=== PATIENT | male | born 1970 | race Asian ===

== ENCOUNTER 2021-04-24 15:26 | Outpatient (REF) | payer MEDICAID, OTHER, SELFPAY ==
--- NOTE | ~2021-04-24 | US_ITS ---
EXAMINATION: ULTRASOUND EXTREMITY NONVASCULAR CLINICAL INFORMATION: Soft tissue subcutaneous growth of the left knee. Question lipoma. COMPARISON: None TECHNIQUE: Targeted sonographic evaluation of the left knee region of concern. FINDINGS: There is a solid mass which is well defined at the region of concern at the anterior left knee. This measures 3 x 2.7 x 0.8 cm and is 0.4 cm deep to the skin surface. There is internal Doppler vascularity. US/US extremity nonvascular murray IMPRESSION: Vascular mass in the subcutaneous tissues of the anterior knee. This is not the typical appearance for a lipoma. Consider further evaluation with either MRI or tissue sampling.
== END 2021-04-24 15:27 | disposition home or self-care (01) ==
LOC: HO.HMGCX 15:26
PROVIDERS: Visit Provider Internal Medicine
DX: D17.9 Benign lipomatous neoplasm, unspecified (principal)
CPT/HCPCS: 76882

== ENCOUNTER 2022-12-28 13:59 | Outpatient (REF) | payer MEDICAID, OTHER, SELFPAY ==
--- NOTE | ~2022-12-28 | XR_ITS ---
EXAMINATION: XR CERVICAL SPINE CLINICAL INFORMATION: Arm paresthesia COMPARISON: None available. TECHNIQUE: Frontal, lateral, odontoid, and oblique views of the cervical spine obtained FINDINGS: There is no prevertebral soft tissue swelling. There is a straightening of the normal lordosis possibly due to positioning or muscular spasm. Multilevel degenerative changes are seen with exuberant anterior osteophyte formation from C3 to C7. Vertebral body heights and disc heights are preserved. Mild bony foraminal encroachment is seen on the left at C5/C6 and C6/C7 and minimal bony foraminal encroachment on the right at C6/C7. XR/XR cervical spine 5V IMPRESSION: Multilevel degenerative changes seen with mild bony foraminal encroachment as described above. No acute fracture or dislocation.
== END 2022-12-28 14:00 | disposition home or self-care (01) ==
LOC: HO.HMGCX 13:59
PROVIDERS: PCP Internal Medicine; Visit Provider Internal Medicine
DX: R20.2 Paresthesia of skin (principal)
CPT/HCPCS: 72050

== ENCOUNTER 2023-06-22 11:24 | Outpatient (REF) | payer MEDICAID, OTHER, SELFPAY ==
[2023-06-22 14:59] LABS: Appearance Urine Clear; Color Urine Yellow; Glucose Urine UA Negative (Negative); Leukocyte Esterase Urine Negative (Negative); Nitrite Urine Negative (Negative); PH 5.5 (5.0-9.0); Specific Gravity - Urine 1.025 (1.005-1.025); Urine Blood Negative (Negative); Urine Ketones Trace mg/dL (Negative); Urine Protein Negative (Neg-Trace)
[2023-06-22 15:04] LABS: Bacteria Urine None Seen (None Seen); Hyaline Casts Urine 0-2 /LPF (0-2); RBC Urine 0-2 /HPF (0-2); Squamous Epithelial Cell Urine 0-2 /HPF (0-2); WBC Urine 0-5 /HPF (0-5)
== END 2023-06-22 11:25 | disposition home or self-care (01) ==
LOC: HO.CHCLDS 11:24
PROVIDERS: Visit Provider Internal Medicine
DX: M62.830 Muscle spasm of back (principal)
CPT/HCPCS: 81001

== ENCOUNTER 2023-06-25 09:52 | Outpatient (REF) | payer MEDICAID, OTHER, SELFPAY ==
--- NOTE | ~2023-06-25 | XR_ITS ---
EXAMINATION: XR KNEE, RIGHT CLINICAL INFORMATION: Pain in the right knee COMPARISON: None available. TECHNIQUE: Four views of the right knee. FINDINGS: No fracture or joint effusion. Alignment is anatomic. Joint spaces are maintained. No abnormal soft tissue calcification. There is minimal spurring causing the patella XR/XR knee RT 3V IMPRESSION: Mild degenerative changes in patellofemoral compartment
--- NOTE | ~2023-06-25 | XR_ITS ---
EXAMINATION: XR ELBOW, LEFT CLINICAL INFORMATION: Pain in left elbow COMPARISON: None available. TECHNIQUE: AP, lateral, and oblique views of the left elbow. FINDINGS: The bones and soft tissues are normal. No fracture or joint effusion. Alignment is anatomic. Joint spaces are maintained. XR/XR elbow LT 2V IMPRESSION: Normal left elbow.
--- NOTE | ~2023-06-25 | XR_ITS ---
EXAMINATION: XR KNEE, LEFT CLINICAL INFORMATION: Pain in left knee COMPARISON: None available. TECHNIQUE: Four views of the left knee. FINDINGS: No fracture or joint effusion. Alignment is anatomic. Joint spaces are maintained. No abnormal soft tissue calcification. XR/XR knee LT 2V IMPRESSION: Normal left knee.
== END 2023-06-25 09:53 | disposition home or self-care (01) ==
LOC: HO.HHCX 09:52
PROVIDERS: Visit Provider Internal Medicine
DX: M25.522 Pain in left elbow (principal); M25.561 Pain in right knee; M25.562 Pain in left knee; G89.29 Other chronic pain
CPT/HCPCS: 73070; 73560; 73562

== ENCOUNTER 2024-11-27 09:34 | Outpatient (REF) | payer MEDICAID, OTHER, SELFPAY ==
--- OUTSIDE RECORDS SUMMARY | 2024-11-27 10:12 | XMS_ITS | Encounter Summary ---
Author Organization [employer] Address [address] [place] [address] Care Team Providers Care Tool Chaser Name Role Phone Lambert Astorga MD Primary Care Provider [phone] Reason for Visit * Reason Onset Date Comments triage 11/10/2022 Encounter Details Date Type Department Care Team (Late st Contact Info) Description 11/10/2022 Telephone [facility] MEDICINE [address] [place] [address] Lambert Astorga MD [address] [place], [place] [phone] triage Social History Tobacco Use Types Packs/Day Years Used Date Smoking Tobacco: Never Passive Smoke Exposure: Never Smokeless Tobacco: Never Alcohol Use Standard Drinks/Week Comments Never 0 (1 standard drink = 0.6 oz pur e alcohol) Sex and Gender Information Value Date Recorded Sex Assigned at Male 04/20/2022 10:38 AM EDT Legal Sex Male 10:38 AM EDT Gender Identity Male 04/20/2022 10:38 AM EDT Sexual Orientation Straight 04/20/2022 10 :38 AM EDT COVID-19 Exposure Response Date Recorded In the last 10 days, have yo u been in contact with someone who was confirmed or suspected to have Coronavirus/COVID-19? No / Unsure 11/10/2022 3:16 PM EDT documented as of this encounter Miscellaneous Notes * Telephone Encounter - Myah Gilliland RN - 11/10/2022 9:22 AM EDT Triage call Pt reports a bubble on left side of tongue. Pt reports it is very painful, white color now and makes eating difficult. Pt reports frequently bites tongue when chewing. Pt has contacted dental for routine care but, no call received. Pt is concerned that this is not going away and wouldlike a provider to check to see if it is something harmful. Apt with Dr. Downing 330pm 11/10 @ [facility] . Pt agrees to this apt. Insurance is verified as active at time of booking. Protocol Used: Mouth Symptoms (Adult) Protocol-Based Disposition: See in Office or Video Visit within 3 Days Video visit not offered Positive Triage Question: * Patient wants to be seen * All higher-acuity triage questions were negative Care Advice Discussed: * Reasons To Call Back - You become worse * Telephone Encounter - Raymond Kwok - 11/10/2022 8:31 AM EDT Symptom: Mouth Pain - Not From Injury Outcome: Schedule an appointment to be seen within 24 hours Reason: Caller denied all higher acuity questions The caller accepted this outcome documented in this encounter Plan of Treatment Not on file documented as of this encounter Visit Diagnoses Not on filedocumented in this encounter Care Teams Tool Chaser Relationship Specialty Start Date End Date Lambert Astorga MD [address] [place] [address] PCP - General Internal Medicine 01/27/21 documented as of this encounter
[2024-11-27 14:54] LABS: Alanine Aminotransferase 28 U/L (0-40); Albumin Level 4.2 g/dL (3.5-5.0); Alkaline Phosphatase 88 U/L (39-117); Anion Gap 9 (12-20); Aspartate Amino Transferase 30 U/L (5-37); Bilirubin Total 0.4 mg/dL (0.0-1.0); Blood Urea Nitrogen 14 mg/dL (9-16); Calcium 8.6 mg/dL (8.4-10.2); Carbon Dioxide 27 mmol/L (22-29); Chloride 108 mmol/L (96-108); Cholesterol 219 mg/dL (<200); Estimated Glomerular Filt Rate > 60; Glucose Random 104 mg/dL (60-115); HDL Cholesterol 38 mg/dL (>40); LDL Cholesterol Calculated 156 mg/dL (<100); Sodium 140 mmol/L (135-145); Total Protein 6.8 g/dL (6.5-8.0); Triglycerides 127 mg/dL (<150)
[2024-11-27 15:11] LABS: TSH reflex Free T4 0.28 uIU/mL (0.32-4.0)
[2024-11-27 15:59] LABS: Free T4 (Free Thyroxine) 1.23 ng/dL (0.71-1.85)
== END 2024-11-27 09:35 | disposition home or self-care (01) ==
LOC: HO.CHCLDS 09:34
PROVIDERS: Visit Provider Internal Medicine
DX: R03.0 Elevated blood-pressure reading, without diagnosis of hypertension (principal)
CPT/HCPCS: 36415; 80053; 80061; 84439; 84443

== ENCOUNTER 2025-03-01 09:17 | Outpatient (REF) | payer MEDICAID, OTHER, SELFPAY ==
--- OUTSIDE RECORDS SUMMARY | 2025-02-27 09:15 | XMS_ITS | Encounter Summary ---
Author Organization [employer] Address [address] [place] [address] [place] [address] Care Team Providers Care Multiple Tube Winding Machine Operator Name Role Phone Lambert Astorga MD Primary Care Provider [phone]- [phone] Reason for Referral * Medications - Closed Specialty Diagnoses / Procedures Referred By Geovanny hayes Referred To Contact Diagnoses Other male erectile dysfunction Lambert Astorga MD [address] [place] [address] Phone: tel: fax: Referral ID Status Reason Start Date Expiration Date Visits Re quested Visits Authorized [id number] Closed 1 1 Reason for Visit * Reason Comments Premature Ejaculation Erectile Dysfunction Encounter Details Date Type Department Care Team ([facility] Contact Info) Description 02/27/2025 9:15 AM EDT Office Visit [facility] MED & PEDS [address] [place] [address] Lambert Astorga MD [address] [place] [address] Elevated blood pressure reading (Primary Dx); Other hemorrhoids; Premature ejaculation; Other male erectile dysfunction; Nocturia Social History Tobacco Use Types Packs/Day Years Used Date Smoking Tobacco: Never Passive Smoke Exposure: Never Smokeless Tobacco: Never Alcohol Use Standard Drinks/Week Comments Never 0 (1 standard drink = 0.6 oz pur e alcohol) Depression Answer Date Recorded Patient Health Questionnaire-9 Score 1 02/27/2025 Patient Health Questionnaire-9 Score 1 02/27/2025 Last PHQ-9: Questionnaire Data Not on file 0 02/27/2025 Housing Stability Answer Date Recorded What is your housing situation today? I have kaushik lobato 11/17/[address] you li ve. Do you have problems with any of the following? None of the above 11/17/2024 Food Insecurity Answer Date Recorded Within the past 12 months, y ou worried that your food would run out before you got money to buy more: Never True 11/17/2024 Within the past 12 months,th e food you bought just didn't last and you didn't have enough money to get more: Never True Transportation Answer Date Recorded In the past 12 months, has l ack of transportation kept you from medical appts, meetings, work or from getting things needed for daily living? No 11/17/2024 Utilities Answer Date Recorded In the past 12 months, has t he electric, gas, oil or water company threatened to shut off services in your home? No 11/17/2024 Depression Answer Date Recorded Patient Health Questionnaire-2 Score 0 02/27/2025 Internet Access Answer Date Recorded Internet Access Q1 Yes 11/17/2024 Internet Access Q2 Not on file 11/17/2024 Sex and Gender Information Value Date Recorded Sex Assigned at Male 04/20/2022 10:38 AM EDT Legal Sex Male 10:38 AM EDT Gender Identity Male 04/20/2022 10:38 AM EDT Sexual Orientation Straight 04/20/2022 10 :38 AM EDT documented as of this encounter Last Filed Vital Signs Vital Sign Reading Time Taken Comments Blood Pressure 132/74 02/27/2025 9:08 AM EDT Pulse 68 02/27/2025 9:08 AM EDT Temperature 36.9 C (98.4 F) 02/27/2025 9:08 AM EDT Respiratory Rate 16 02/27/2025 9:08 AM EDT Oxygen Saturation - - Inhaled Oxygen Concentration - - Weight 86.5 kg (190 lb 9.6 oz) 02/27/2025 9:08 A M EDT Height 165.1 cm (5' 5 ) 02/27/2025 9:08 AM EDT Body Mass Index 31.72 02/27/2025 9:08 AM EDT documented in this encounter Functional Status * Over the past 2 weeks, how often have you been bothered by any of the following problems? Question Answer Date of Assessment Author Patient Health Questionnaire-2 Score 0 02/2025 9:35 AM EDT Marcella Ayers MA * Little interest or pleasure in doing things Answer Date of Assessment Author Not at all 02/27/2025 9:35 AM EDT Keith Ayers MA * Feeling down, depressed, or hopeless Answer Date of Assessment Author Not at all 02/27/2025 9:35 AM EDT Keith Ayers MA * Trouble falling or staying asleep, or sleeping too much Answer Date of Assessment Author Not at all 02/27/2025 9:35 AM EDT Keith Ayers MA * Feeling tired or having little energy Answer Date of Assessment Author Not at all 02/27/2025 9:35 AM EDT Keith Ayers MA * Poor appetite or overeating Answer Date of Assessment Author Not at all 02/27/2025 9:35 AM EDT Keith Ayers MA * Feeling bad about yourself - or that you are a failure or have let yourself or your family down Answer Date of Assessment Author Several days 02/27/2025 9:35 AM EDT Keith Ayers MA * Trouble concentrating on things, such as reading the newspaper or watching television Answer Date of Assessment Author Not at all 02/27/2025 9:35 AM EDT Keith Ayers MA * Moving or speaking so slowly that other people could have noticed? Or the opposite - being so fidgety or restless that you have been moving around a lot more than usual. Answer Date of Assessment Author Not at all 02/27/2025 9:35 AM DOREENT Keith Ayers MA * Thoughts that you would be better off or hurting yourself in some way Answer Date of Assessment Author Not at all 02/27/2025 9:35 AM EDT Keith Ayers MA * Patient Health Questionnaire-9 Score Answer Date of Assessment Author 1 02/27/2025 9:35 AM EDT Keith Ayers MA * How difficult have these problems made it for you to do your work, take care of things at home, or get along with other people? Answer Date of Assessment Author Not difficult at all 02/27/2025 9:35 AM Marcella Nettles MA documented as of this encounter Progress Notes * Lambert Astorga MD - 02/27/2025 9:15 AM EDT SUBJECTIVE Peter White is a 54 y.o. male who presents for Premature Ejaculation and Erectile Dysfunction. Erectile Dysfunction This is a chronic problem. The problem is unchanged. The nature of his difficulty is achieving erection and maintaining erection. Non-physiologic factors contributing to erectile dysfunction are performance anxiety. He reports no decreased libido. He reports his erection duration to be less than 1 minute. Irritative symptoms include nocturia. Obstructive symptoms do not include dribbling, incomplete emptying, an intermittent stream, a slower stream, straining or a weak stream. Pertinent negatives include no chills, dysuria, genital pain, hematuria, hesitancy or inability to urinate. Nothing aggravates the symptoms. Past treatments include nothing. He has had no adverse reactions caused by medications. There are no known risk factors. 1) patient also reports today that he has difficulty attaining and maintaining erection for severalmonths. He is rigidity is at 50%. He last less than 1 minute before ejaculation. 2) was referred to general surgery to consider hemorrhoidectomy but patient himself canceled the appointment because he did not have any bleeding and was not ready to get surgery for his hemorrhoids. 3) history of premature ejaculation. Was on Prozac which was helpful but patient has decided to stop the medication and is concerned about the fact that Prozac is an antidepressant. I explained to him that Prozac is indicated for treatment of premature ejaculation. 4) history of seasonal allergies. Was evaluated by [facility] mass allergy on January 15, 2025 and he wasstarted on Michelle and Flonase. Patient is otherwise doing better. 5) Mr Peter White is also complaining of nocturia. Wakes up at night 2-3 times to urinate. He denies any burning sensation/fever or other constitutional symptoms. Problem List[1] Allergies[2] Medications Ordered Prior to Encounter[3] Review of Systems Constitutional: Negative for chills. Genitourinary: Positive for nocturia. Negative for decreased libido, dysuria, hematuria, hesitancy and incomplete emptying. OBJECTIVE Vitals: 02/27/25 0908 BP: 132/74 BP Location: Left arm Patient Position: Sitting BP Cuff Size: Adult Pulse: 68 Resp: 16 Temp: 98.4 ??F (36.9 ??C) TempSrc: Oral Weight: 190 lb 9.6 oz (86.5 kg) Height: 5' 5 (1.651 m) Physical Exam Constitutional: General: He is not in acute distress. Appearance: Normal appearance. He is not ill-appearing, toxic-appearing or diaphoretic. Cardiovascular: Rate and Rhythm: Normal rate. Pulses: Normal pulses. Pulmonary: Effort: Pulmonary effort is normal. Skin: General: Skin is warm. Neurological: General: No focal deficit present. Mental Status: He is alert. Assessment/Plan Assessment/Plan Diagnoses and all orders for this visit: Elevated blood pressure reading Comments: Blood pressure is at goal today DASH diet recommended Weight loss also recommended. Other hemorrhoids Comments: Sitz bath Avoid spicy food and constipation Anusol as needed. Premature ejaculation Comments: Pt has stopped taking his Prozac Advised to resume it for the next 2 months. I will consider increasing the dose to 40 mg daily if no improvement. Orders: - FLUoxetine (PROzac) 20 MG capsule; Take 1 capsule (20 mg) by mouth Once per day. Other male erectile dysfunction - tadalafil (Cialis) 2.5 MG tablet; Take 1 tablet (2.5 mg) by mouth Once per day. - TSH W/Reflex to FT4; Future - Testosterone, Total, males (Adult), IA; Future Patient will be contacted with the results of the workup. Nocturia - Comprehensive Metabolic Panel; Future - Urinalysis, Complete, with Reflex to Culture; Future - PSA, Total With Reflex to PSA, Free; Future Patient will be contacted with the results of the blood work. [1] Patient Active Problem List Diagnosis Tongue ulcer Kidney stone Elevated blood pressure reading Acute hemorrhoid [2] No Known Allergies [3] Current Outpatient Medications on File Prior to Visit Medication Sig Dispense Refill Blood Pressure kit 1 Units in the morning. 1 kit 0 Diclofenac Sodium 1 % gel To apply to the affected area 4 times a day 100 g 0 econazole nitrate 1 % cream APPLY TO THE AFFECTED AREA(S) TWICE DAILY FOR FOURTEEN DAYS 30 g 0 fexofenadine (Michelle) 180 MG tablet Take 1 tablet (180 mg) by mouth if needed each day (Allergies). 30 tablet 2 fluticasone (Flonase) 50 MCG/ACT nasal spray Administer 1-2 sprays into each nostril Once per day. Shake gently. Before first use, prime pump. After use, clean tip and replace cap. 16 g 11 hydrocortisone (Anusol-HC) 2.5 % rectal cream Insert into the rectum 2 times daily. 28 g 1 meloxicam (Mobic) 15 MG tablet Take 1 tablet (15 mg) by mouth Once per day. 30 tablet 11 psyllium (Metamucil) 0.36 g capsule Take 6 capsules (2.16 g) by mouth Once per day. 180 capsule 11 [DISCONTINUED] FLUoxetine (PROzac) 20 MG capsule Take 2 capsules (40 mg) by mouth Once per day. 20 capsule 3 No current facility-administered medications on file prior to visit. documented in this encounter Plan of Treatment Scheduled Orders Name Type Priority Associated Diagnoses Orde r Schedule Comprehensive Metabolic Panel Lab Routine Nocturia Expected: 02/27/2025 (Approximate), Expires: 02/27/2026 TSH W/Reflex to FT4 Lab Routine Other male erectile dysfunction Expected: 02/27/2025 (Approximate), Expires: 02/27/2026 Testosterone, Total, males (Adult), IA Lab Routine Other male erectile dysfunction Expected: 02/27/2025, Expires: 02/27/2026 Urinalysis, Complete, with Reflex to Culture Lab Routine Nocturia Expected: 02/27/2025 (Approximate), Expires: 02/27/2026 PSA, Total With Reflex to PSA, Free Lab Routine Nocturia Expected: 02/27/2025 (Approximate), Expires: 02/27/2026 documented as of this encounter Visit Diagnoses Diagnosis Elevated blood pressure reading- Primary Elevated blood pressure reading without diagnosis of hypertension Other hemorrhoids Premature ejaculation Other male erectile dysfunction Nocturia documented in this encounter Additional Health Concerns Assessment Noted Time PHQ-9 Depression Total Score: 1 02/28/20 25 9:35 AM EDT documented as of this encounter Care Teams Multiple Tube Winding Machine Operator Relationship Specialty Start Date End Date Lambert Astorga MD [address] [place] [id number] PCP - General Internal Medicine 01/27/21 documented as of this encounter
--- OUTSIDE RECORDS SUMMARY | 2025-03-01 10:48 | XMS_ITS | Encounter Summary ---
Author Organization [employer] Address [address] [facility] 7 [place] [address] Care Team Providers Care Shorthand Reporter Name Role Phone Lambert Astorga MD Primary Care Provider [phone]- [phone] Encounter Details Date Type Department [facility]) Description 11/28/2024 Orders Only [facility] CHC MED & PEDS [address] [place] [address] Lambert Astorga MD [address] [place] [address] Low TSH level (Primary Dx); Dyslipidemia Social History Tobacco Use Types Packs/Day Years Used Date Smoking Tobacco: Never Passive Smoke Exposure: Never Smokeless Tobacco: Never Alcohol Use Standard Drinks/Week Comments Never 0 (1 standard drink = 0.6 oz pur e alcohol) Housing Stability Answer Date Recorded What is [...] off services in your home? No 11/17/2024 Internet Access Answer Date Recorded Internet Access Q1 Yes 11/17/2024 Internet Access Q2 Not on file 11/17/2024 Sex and Gender Information Value Date Recorded Sex Assigned at Male 04/20/2022 10:38 AM EDT Legal Sex Male 10:38 AM EDT Gender Identity Male 04/20/2022 10:38 AM EDT Sexual Orientation Straight 04/20/2022 10 :38 AM EDT documented as of this encounter Plan of Treatment Scheduled Orders Name Type Priority Associated Diagnoses Orde r Schedule TSH W/Reflex to FT4 Lab Routine Low TSH level Expected: 11/28/2024 (Approximate), Expires: 11/28/2025 Lipid Panel, Standard Lab Routine Dyslipidemia Expected: 11/28/2024 (Approximate), Expires: 11/28/2025 documented as of this encounter Visit Diagnoses Diagnosis Low TSH level- Primary Dyslipidemia Other and unspecified hyperlipidemia documented in this encounter Care Teams Shorthand Reporter Relationship Specialty Start Date End Date Lambert Astorga MD [address] [place] [id number] PCP - General Internal Medicine 01/27/21 documented as of this encounter
--- OUTSIDE RECORDS SUMMARY | 2025-03-01 10:48 | XMS_ITS | Encounter Summary ---
Author Organization [employer] Address [address] [facility] 7 [place] [address] Care Team Providers Care Control Systems Technician Name Role Phone Lambert Astorga MD Primary Care Provider [phone]- [phone] Reason for Visit * Reason Onset Date Comments Nurse Triage 10/26/2023 Encounter Details Date Type Department Care Team (Late st Contact Info) Description 10/26/2023 Telephone [facility] MEDICINE [address] [place] [address] Lambert Astorga MD [address] [place], [place] [phone] Nurse Triage Social History Tobacco Use Types Packs/Day Years Used Date Smoking Tobacco: Never Passive Smoke Exposure: Never Smokeless Tobacco: Never Alcohol Use Standard Drinks/Week Comments Never 0 (1 standard drink = 0.6 oz pur e alcohol) Housing Stability Answer Date Recorded What is your housing situation today? I have kaushik lobato 10/28/[address] you li ve. Do you have problems with any of the following? None of the above 10/28/2023 Food Insecurity Answer Date Recorded Within the past 12 months, y ou worried that your food would run out before you got money to buy more: Never True 10/28/2023 Within the past 12 months,th e food you bought just didn't last and you didn't have enough money to get more: Never True 02/2024 Transportation Answer Date Recorded In the past 12 months, has l ack of transportation kept you from medical appts, meetings, work or from getting things needed for daily living? No 10/28/2023 Utilities Answer Date Recorded In the past 12 months, has t he electric, gas, oil or water company threatened to shut off services in your home? No 10/28/2023 Sex and Gender Information Value Date Recorded Sex Assigned at Male 04/20/2022 10:38 AM EDT Legal Sex Male 10:38 AM EDT Gender Identity Male 04/20/2022 10:38 AM EDT Sexual Orientation Straight 04/20/2022 10 :38 AM EDT documented as of this encounter Miscellaneous Notes * Telephone Encounter - Wing Liban RN - 10/27/2023 9:24 AM EDT Appt for 11/03 canceled, put appt notes from there into the 10/27 appt's note. * Telephone Encounter - Norma Walters RN - 10/26/2023 11:21 AM EDT called pt to triage, spoke to pt. pt states seasonal allergies are getting worse and the medicationdoe not help much. pt reports nasal congestion, sneezing, tearing and redness of eyes, and fatigue.pt requesting sooner appt than the scheduled OV on 11/03 and asked if he was able to wait due to no severe symptoms. pt states cannot sleep and needs to run the AC constantly to help with the allergy symptoms and uses steam as well without significant relief. given appt 10/27 with PCP at 3:45 for exam. advised home care: continue allergy medication, steam, humidifier at bedside, and call back if worsening or new concerns. pt understands and agrees with plan. insurance verified. Protocol Used: Nasal Allergies (Hay Fever) (Adult) Protocol-Based Disposition: See in Office or Video Visit within 2 Weeks Video visit offer not recorded Positive Triage Question: * Nasal allergies occur year-round * All higher-acuity triage questions were negative Care Advice Discussed: * Reassurance and Education - Hay Fever * Wash Pollen off Body Daily * Avoiding Pollen * Nasal Washes for a Stuffy Nose and to Wash out Pollen * How to Make Saline (Salt Water) Nasal Wash * Antihistamine Medicines for Hay Fever * Nasal Decongestants for a Very Stuffy Nose * For Eye Allergies * Reasons To Call Back - Symptoms are not controlled in 2 days with continuous antihistamines - You become worse * Telephone Encounter - Jaxson Gilbert - 10/26/2023 10:25 AM EDT Symptom: Eye Allergy Outcome: Schedule an urgent appointment (within 4 hours) or talk to a nurse or provider soon Reason: Eyelid is red and swollen documented in this encounter Plan of Treatment Not on file documented as of this encounter Visit Diagnoses Not on filedocumented in this encounter Care Teams Control Systems Technician Relationship Specialty Start Date End Date Lambert Astorga MD [address] [place] [phone] PCP - General Internal Medicine 01/27/21 documented as of this encounter
--- OUTSIDE RECORDS SUMMARY | 2025-03-01 10:48 | XMS_ITS | Encounter Summary ---
Author Organization [employer] Address 75 [facility] 7 [place] [address] Care Team Providers Care Immigration Law Specialist Name Role Phone Lambert Astorga MD Primary Care Provider [phone] Encounter Details Date Type Department Care Team ([facility] st Contact Info) Description 06/30/[address] [facility] MED & PEDS [address] [place] [address] Lambert Astorga MD [address] [place], [place] [phone] Chronic pain of both knees (Primary Dx) Social History Tobacco Use Types Packs/Day Years [...] as of this encounter Plan of Treatment Not on file documented as of this encounter Visit Diagnoses Diagnosis Chronic pain of both knees- Primary documented in this encounter Care Teams Immigration Law Specialist Relationship Specialty Start Date End Date Lambert Astorga MD [address] [place], [place] [phone] PCP - General Internal Medicine 01/27/21 documented as of this encounter
--- OUTSIDE RECORDS SUMMARY | 2025-03-01 10:48 | XMS_ITS | Encounter Summary ---
Author Organization [email or web address] Address [address] [facility] [address] [place] [address] Care Team Providers Care Airplane First Officer Name Role Phone Lambert Astorga MD Primary Care Provider [phone]- [phone] Encounter Details Date Type Department Care Team (Latest Contact Info) Description 02/27/2025 Travel Social History Tobacco Use Types Packs/Day Years [...] AM EDT documented as of this encounter Functional Status * Over the [...] 9:35 AM DOREENT Keith Ayers MA * Trouble falling or staying asleep, or sleeping too much Answer Date of Assessment Author Not at all 02/27/2025 9:35 AM Keith Recio MA * Feeling tired or having little energy Answer Date of Assessment Author Not at all 02/27/2025 9:35 AM EDT Keith Ayers MA * Poor appetite or overeating Answer Date of Assessment Author Not at all 02/27/2025 9:35 AM DOREENT Keith Ayers MA * Feeling bad about yourself - or that you are a failure or have let yourself or your family down Answer Date of Assessment Author Several days 02/27/2025 9:35 AM Keith Recio MA * Trouble concentrating on things, such [...] 9:35 AM EDT Keith Ayers MA * Thoughts that you [...] Not difficult at all 02/27/2025 9:35 AM EDT Marcella Vazquez MA documented as of this encounter Plan of Treatment Not on file documented as of this encounter Visit Diagnoses Not on filedocumented in this encounter Additional Health Concerns Assessment Noted Time PHQ-9 Depression Total Score: 1 02/28/20 25 9:35 AM EDT documented as of this encounter Care Teams Airplane First Officer Relationship Specialty Start Date End Date Lambert Astorga MD [address] [place], [place] [address] [address] PCP - General Internal Medicine 01/27/21 documented as of this encounter
--- OUTSIDE RECORDS SUMMARY | 2025-03-01 10:48 | XMS_ITS | Clinical Summary ---
Author Organization [employer] Address 75 [facility] 7 [place] [address] Care Team Providers Care Key Account Coordinator Name Role Phone Lambert Astorga MD Primary Care Provider [phone] Allergies No known active allergies Medications Blood Pressure kitIndications :Elevated blood pressure reading 1 Units in the morning. 1 kit 11/11/19 23 Active Diclofenac Sodium 1 % gelIndications :Left elbow pain To apply to the affected area 4 times a day 100 g 09/03/19 24 Active econazole nitrate 1 % cream APPLY TO THE AFFECTED AREA(S) TWICE DAILY FOR FOURTEEN DAYS 30 g 09/21/19 24 Active psyllium (Metamucil) 0.36 g capsuleIndicat ions:Acute hemorrhoid Take 6 capsules (2.16 g) by mouth Once per day. 180 capsule 11 10/03/19 25 026 Active fexofenadine (Michelle) 180 MG tabletIndicati ons:Seasonal allergies Take 1 tablet (180 mg) by mouth if needed each day (Allergies). 30 tablet 2 11/28/19 25 Active fluticasone (Flonase) 50 MCG/ACT nasal sprayIndicatio ns:Seasonal allergies Administer 1-2 sprays into each nostril Once per day. Shake gently. Before first use, prime pump. After use, clean tip and replace cap. 16 g 11 11/28/19 25 026 Active meloxicam (Mobic) 15 MG tabletIndicati ons:Chronic pain of both knees,Hemorrho ids, unspecified hemorrhoid type Take 1 tablet (15 mg) by mouth Once per day. 30 tablet 11 11/28/19 25 026 Active hydrocortisone (Anusol-HC) 2.5 % rectal creamIndicatio ns:Hemorrhoids , unspecified hemorrhoid type Insert into the rectum 2 times daily. 28 g 1 11/28/19 25 Active FLUoxetine (PROzac) 20 MG capsuleIndicat ions:Premature ejaculation Take 1 capsule (20 mg) by mouth Once per day. 20 capsule 3 02/28/20 25 026 Active tadalafil (Cialis) 2.5 MG tabletIndicati ons:Other male erectile dysfunction Take 1 tablet (2.5 mg) by mouth Once per day. 30 tablet 2 02/28/20 25 025 Active FLUoxetine (PROzac) 20 MG capsuleIndicat ions:Premature ejaculation Take 2 capsules (40 mg) by mouth Once per day. 20 capsule 3 11/28/19 25 025 Discontinued(Re order (will not trigger notification to Pharmacy)) Active Problems Problem Noted Date Diagnosed Date Acute hemorrhoid 10/02/2024 Assessment & Plan (10/02/2024 1:21 PM EDT): Encouraged hydration, metameucil, colace prn, (pt had stopped) Warm stiz baths encouraged Rectal suppository rx, bid If no improvement or worsening pain referral to GI Tongue ulcer 11/10/2022 Assessment & Plan (02/03/2023 8:55 PM EDT): Patient with side tongue lesion, stomatitis??. Will prescribe triamcinolone paste, will order hiv and vit b12 levels Assessment & Plan (11/11/2022 8:38 AM EDT): ddx. Stomatitis. Will send to ENT for assessment given concern of no resolution and start on triamcinolone 0.1% oral paste. Advised not to consume any food or liquids 30 minutes after application. Will schedule f/up with PCP Kidney stone 11/10/2022 Elevated blood pressure reading 11/10/2022 Assessment & Plan (10/02/2024 1:21 PM EDT): Elevated bp in office today, pt will follow up with pcp Assessment & Plan (11/10/2022 3:49 PM EDT): Elevated blood pressure at time of visit with a reading of 148/90 mmHg. Will send blood pressure cuff. Encouraged monitoring blood pressure at home and follow with PCP. Encounters Date Type Department Care Team Description 02/27/2025 9:15 AM EDT Office Visit [facility] MED & PEDS [address] [place] [address] Lambert Astorga MD Elevated blood pressure reading (Primary Dx); Other hemorrhoids; Premature ejaculation; Other male erectile dysfunction; Nocturia 02/27/2025 Travel 02/26/2025 Telephone [facility] MED & PEDS [address] [place] [address] Lambert Astorga MD Chart Prep 12/04/2024 Telephone [facility] MED & PEDS [address] [place] [address] Lambert Astorga MD Medication Question 11/29/2024 Results Follow-Up [facility] MED & PEDS [address] [place] [address] Tatum Gomez RN Comprehensive Metabolic Panel, Lipid Panel, Standard, TSH W/Reflex to FT4 from Last 3 Months Immunizations Immunization Administration Dates Next Due Influenza injectable quadrivalent preservative f ree 04/17/2021 Social History Tobacco Use Types Packs/Day Years Used Date Smoking Tobacco: Never Passive Smoke Exposure: Never Smokeless Tobacco: Never Tobacco Cessation:Counseling Given: Not Answered Alcohol Use Standard Drinks/Week Comments Never 0 [...] Orientation Straight 04/20/2022 10 :38 AM EDT Last Filed Vital Signs Vital Sign Reading Time Taken Comments Blood Pressure 132/74 02/27/2025 9:08 AM EDT Pulse 68 02/27/2025 9:08 AM EDT Temperature 36.9 C (98.4 F) 02/27/2025 9:08 AM EDT Respiratory Rate 16 02/27/2025 9:08 AM EDT Oxygen Saturation 100% 11/27/2024 9:05 AM EDT Inhaled Oxygen Concentration - - Weight 86.5 kg (190 lb 9.6 oz) 02/27/2025 9:08 A M EDT Height 165.1 cm (5' 5 ) 02/27/2025 9:08 AM EDT Body Mass Index 31.72 02/27/2025 9:08 AM EDT Plan of Treatment Health Maintenance Due Date Last Done Comments CT Colonography 1969 Colonoscopy 1969 Colorectal Cancer Screening 1969 Dental Prophylaxis 1969 FIT DNA/Cologuard 1969 FIT 1969 FOBT 1969 HIV Screening 1969 Sigmoidoscopy 1969 Hepatitis C Screening 1987 DTaP/Tdap/Td Vaccines (1 - Tdap) 1988 Hepatitis B Vaccines (1 of 3 - 19+ 3-dose series) 1988 Pneumococcal Vaccine: 50+ Years (1 of 1 - PCV) 2019 Zoster Vaccines (1 of 2) 2019 COVID-19 Vaccine (3 - 2024-2 6 season) 2025 11/05/2020, 10/15/2020 Influenza Vaccine (#1) 2025 04/17/2021 Dental Oral Exam 04/04/2025 10/02/2024, 08/11/2022 Dental X-Ray: Full Mouth 08/12/2025 08/11/2022 Dental X-Ray: Bitewings 10/03/2025 10/03/19, 08/11/2022 SDOH Screening 11/17/2025 11/17/2024 Alcohol/Substance Use Screening 02/27/2026 02/27/2025 Depression Screening 02/27/2026 02/27/2025, 02/27/2025 Disability Screening 02/27/2026 02/27/2025 Tobacco Screening 02/27/2026 02/27/2025 Lipid Panel 11/27/2029 11/27/2024, 02/12/2021 RSV Patients and Patients Aged 60 years or older (1 - 1-dose 75+ series) 2044 HIB Vaccines Aged Out No longer eligi ble based on patient's age to complete this topic HPV Vaccines Aged Out No longer eligi ble based on patient's age to complete this topic Hepatitis A Vaccines Aged Out No long er eligible based on patient's age to complete this topic IPV Vaccines Aged Out No longer eligi ble based on patient's age to complete this topic Meningococcal B Vaccine Aged Out No l onger eligible based on patient's age to complete this topic Meningococcal Vaccine Aged Out No leslie derick eligible based on patient's age to complete this topic RSV under 20 months Aged Out No longe r eligible based on patient's age to complete this topic Rotavirus Vaccines Aged Out No longer eligible based on patient's age to complete this topic Procedures Procedure Name Priority Date/Time Associated Diagnosis Comments LIPID PANEL, STANDARD Routine 11/27/2024 9:40 AM EDT Elevated blood pressure reading BITEWINGS - 4 RADIOGRAPHIC IMAGES Routine 10/02/2024 9:00 AM EDT PERIODIC ORAL EVALUATION - ESTABLISHED PATIENT Routine 10/02/2024 9:00 AM EDT INTRAORAL - COMPLETE SERIES OF RADIOGRAPHIC IMAGES Routine 08/11/2022 3:00 PM EST from Last 3 Months or Most Recently Relevant to Health Maintenance Results * (ABNORMAL) Lipid Panel, Standard (11/27/2024 9:40 AM EDT) Triglycerides 127 <150 mg/dL [facility] Comment:Desirable Triglyceri de: less than 150 mg/dLBorderline High Triglyceride 150-199 mg/dLHigh Triglyceride: 200-499 mg/dLVery High Triglyceride: greater than or equal to 5OO mg/dL Cholesterol 219(H) <200 mg/dL [facility] Comment:Desirable Cholestero l: less than 200 mg/dLBorderline High Cholesterol: 200-239 mg/dLHigh Cholesterol: greater than 239 mg/dL LDL Cholesterol Calculated 156(H) <100 mg/dL [facility] Comment:Desirable LDL: less than 100 mg/dLNear Optimal/Above Optimal LDL: 110- 129 mg/dLBorderline High LDL: 130-159 mg/dLHigh LDL: 160-189 mg/dLVery High LDL: greater than or equal to 190 mg/dL HDL Cholesterol 38(L) >40 mg/dL [facility] Comment:Desirable HDL: great er than 40 mg/dL Note: This HDL assay may give artificially low results in patients with liver disease. Blood Venous blood specimen / Unknown 11/27/2024 9:40 AM EDT 11/27/2024 2:11 PM EDT us Lambert Astorga MD LAB BLOOD ORDERABLES Final Result [facility] [address] [place] [address] [phone] from Last 3 Months or Most Recently Relevant to Health Maintenance Insurance [facility] HSN FULL DENTAL-[facility] MEDICAID STAND ADULT [address] [facility] [place] [id number] Care Teams Key Account Coordinator Relationship Specialty Start Date End Date Lambert Astorga MD [address] [place] [address] [place] Boss [id number] PCP - General Internal Medicine 01/27/21
--- OUTSIDE RECORDS SUMMARY | 2025-03-01 10:48 | XMS_ITS | Encounter Summary ---
Author Organization [employer] Address [address] [place] [address] Care Team Providers Care Block Tester Name Role Phone Lambert Astorga MD Primary Care Provider [phone]- [phone] Reason for Visit * Reason Onset Date Comments Chart Prep 02/26/2025 Encounter Details Date Type Department Care Team ([facility] Contact Info) Description 02/26/2025 Telephone [facility] CH[facility] MED & PEDS [address] [place] [address] Lambert Astorga MD [address] [place] [address] Chart Prep Social History Tobacco Use Types Packs/Day Years [...] encounter Miscellaneous Notes * Telephone Encounter - Jennifer Gilbert MA - 02/26/2025 9:10 AM EDT Chart Prep Labs: not done Images: not done Referrals: complete Vaccines due: PCV20, Hep B, and Zoster Screenings: colonoscopy and STI screening Overdue care gaps: PHQ-9, Disability screen, and Tobacco documented in this encounter Plan of Treatment Not on file documented as of this encounter Visit Diagnoses Not on filedocumented in this encounter Care Teams Block Tester Relationship Specialty Start Date End Date Lambert Astorga MD [address] [facility] [place] [address] PCP - General Internal Medicine 01/27/21 documented as of this encounter
--- OUTSIDE RECORDS SUMMARY | 2025-03-01 10:48 | XMS_ITS | Encounter Summary ---
Author Organization [employer] Address [address] [place] [address] [place] [address] Care Team Providers Care Global Implementation Manager Name Role Phone Lambert Astorga MD Primary Care Provider [phone]- [phone] Reason for Referral * Consultation (Routine) - Closed Specialty Diagnoses / Procedures Referred By Contac t Referred To Contact Gastroenterology Diagnoses Encounter for screening colonoscopy Lambert Astorga MD [address] [place] [address] Phone: tel: fax: Charli Zarate MD [address] [place] [address] Phone: tel: fax: Referral ID Status Reason Start Date Expiration Date V isits Requested Visits Authorized [id number] Closed Specialty Services Required 12/31/2023 12/30/2024 1 1 Encounter Details Date Type Department Care Team (Late st Contact Info) Description 12/31/2023 Orders Only [facility] CH[facility] MED & PEDS [address] [place], [place] [phone] Lambert Astorga MD [address] [place], [place] [phone] Encounter for screening colonoscopy (Primary Dx) Social History Tobacco Use Types [...] of this encounter Plan of Treatment Scheduled Referrals Name Type Priority Associated Diagnoses Order Schedule Referral to Gastroenterology Outpatient Referral Routine Encounter for screening colonoscopy Expected: 12/31/2023 (Approximate), Expires: 12/30/2024 documented as of this encounter Procedures Procedure Name Priority Date/Time Associated Diagnosis Comments T4, FREE Routine 11/27/2024 9:40 AM EDT Encounter for screening colonoscopy documented in this encounter Results * T4, Free (11/27/2024 9:40 AM EDT) Free T4 (Free Thyroxine) 1.23 0.71 - 1.85 ng/dL [facility] 11/27/2024 9:40 AM EDT 11/27/2024 2:11 PM EDT Lambert Astorga MD LAB BLOOD ORDERABLES Final Result [facility] [address] [place] [address] [phone] documented in this encounter Visit Diagnoses Diagnosis Encounter for screening colonoscopy- Primary documented in this encounter Care Teams Global Implementation Manager Relationship Specialty Start Date End Date Lambert Astorga MD [address] [place] [phone] PCP - General Internal Medicine 01/27/21 documented as of this encounter
--- OUTSIDE RECORDS SUMMARY | 2025-03-01 10:48 | XMS_ITS | Clinical Summary ---
Author Organization [facility] Address [address] [place] [address] Care Team Providers Care Graphic Engineer Name Role Phone Lambert Astorga Primary Care Provider [phone] Allergies No known active allergies Medications PARoxetine (PAXIL) 10 mg tablet Take 10 mg by mouth once a day. 04/17/2021 Active Active Problems No known active problems Encounters Date Type Department Care Team Description 12/12/2024 Transcribe Orders [facility] Physician Referral Services [address] [place] [phone] Lambert Astorga Bleeding external hemorrhoids (Primary Dx) from Last 3 Months Family History Medical History Relation Name Comments No Known Problems Brother Arthritis Father No Known Problems Mother No Known Problems Other No Known Problems Sister Cancer Neg Hx Relation Name Status Comments Brother Alive Father Mother Alive Other Alive Sister Alive Social History Tobacco Use Types Packs/Day Years Used Date Smoking Tobacco: Never Smokeless Tobacco: Never Alcohol Use Standard Drinks/Week Comments Never 0 (1 standard drink = 0.6 oz pur e alcohol) Sex and Gender Information Value Date Recorded Sex Assigned at Not on file Legal Sex Male 9:56 AM EDT Gender Identity Not on file Sexual Orientation Not on file Occupation Industry Job Start Date Job End Date Unemployed Not on file Not on file Not on file Last Filed Vital Signs Vital Sign Reading Time Taken Comments Blood Pressure 150/90 05/12/2021 2:21 PM EST Pulse 107 05/12/2021 2:21 PM EST Temperature - - Respiratory Rate - - Oxygen Saturation - - Inhaled Oxygen Concentration - - Weight 88.9 kg (196 lb) 05/12/2021 2:21 PM EST Height 165.1 cm (5' 5 ) 05/12/2021 2:21 PM EST Body Mass Index 32.62 05/12/2021 2:21 PM EST Plan of Treatment Health Maintenance Due Date Last Done Comments Cologuard 1969 Colon Cancer Screening 1969 Colonoscopy 1969 FOBT / Fit Test 1969 HIV Screening 1969 Sigmoidoscopy 1969 Hepatitis B Vaccines (1 of 3 - 19+ 3-dose series) 1988 DTaP,Tdap,and Td Vaccines (1 - Tdap) 1991 Pneumococcal Vaccine: 50+ Ye ars (1 of 1 - PCV) 2019 Zoster Vaccines (1 of 2) 2019 Alcohol/Substance Use Screening 06/21/2024 COVID-19 Vaccine (3 - 2024- season) 2025, 10/15/2020 Influenza Vaccine (#1) 2025 04/17/2021 RSV Vaccine (60+ years old a nd patients) (1 - 1-dose 75+ series) 2044 Insurance [employer] HSNO/FREE CARE Care Teams Graphic Engineer Relationship Specialty Start Date End Date Lambert Astorga [address] [place] [phone] PCP - General Internal Medicine 04/30/21
--- OUTSIDE RECORDS SUMMARY | 2025-03-01 10:48 | XMS_ITS | Encounter Summary ---
Author Organization [employer] Address [address] [place] [address] Care Team Providers Care River Driver Name Role Phone Lambert Astorga MD Primary Care Provider [phone]- [phone] Reason for Visit * Reason Onset Date Comments triage 11/10/2022 Encounter Details Date Type Department Care Team (Late st Contact Info) Description 11/10/2022 Telephone [facility] MEDIC[facility] [address] [place] [address] Lambert Astorga MD [address] [place], [place] [phone] triage Social History Tobacco Use Types Packs/Day [...] Apt with [facility] Downing 330[facility] . Pt agrees to this apt. Insurance [...] on filedocumented in this encounter Care Teams River Driver Relationship Specialty Start Date End Date Lambert Astorga MD [address] [place] [address] PCP - General Internal Medicine 01/27/21 documented as of this encounter
--- OUTSIDE RECORDS SUMMARY | 2025-03-01 10:48 | XMS_ITS | Encounter Summary ---
Author Organization [employer] Address 75 [facility] 7 [place] [address] Care Team Providers Care Ocean Export Account Manager Name Role Phone Lambert Astorga MD Primary Care Provider [phone] Reason for Visit * Reason Comments Med Refill Encounter Details Date Type Department Care Team ([facility] st Contact Info) Description 11/27/2024 Refill [facility] MED & PEDS [address] [place] [address] Lambert Astorga MD [address] [place], [place] [phone] Hemorrhoids, unspecified hemorrhoid type Social History Tobacco Use Types Packs/Day Years [...] as of this encounter Visit Diagnoses Diagnosis Hemorrhoids, unspecified hemorrhoid type documented in this encounter Care Teams Ocean Export Account Manager Relationship Specialty Start Date End Date Lambert Astorga MD [address] [place] [phone] PCP - General Internal Medicine 01/27/21 documented as of this encounter
[2025-03-01 14:28] LABS: Appearance Urine Clear; Glucose Urine UA Negative (Negative); PH 5.5 (5.0-9.0); Specific Gravity - Urine 1.025 (1.005-1.025)
[2025-03-01 14:55] LABS: Alanine Aminotransferase 26 U/L (0-40); Albumin Level 4.2 g/dL (3.5-5.0); Alkaline Phosphatase 85 U/L (39-117); Anion Gap 10 (12-20); Aspartate Amino Transferase 31 U/L (5-37); Blood Urea Nitrogen 17 mg/dL (9-16); Calcium 8.3 mg/dL (8.4-10.2); Carbon Dioxide 27 mmol/L (22-29); Chloride 108 mmol/L (96-108); Estimated Glomerular Filt Rate > 60; Potassium 3.9 mmol/L (3.3-5.1); Sodium 141 mmol/L (135-145); Total Protein 6.6 g/dL (6.5-8.0)
[2025-03-01 14:59] LABS: PSA,Total (Free>4and<10) 2.19 ng/mL (0.00-4.00)
== END 2025-03-01 09:18 | disposition home or self-care (01) ==
LOC: CF 09:17
PROVIDERS: Visit Provider Internal Medicine
DX: R35.1 Nocturia (principal); N52.8 Other male erectile dysfunction
CPT/HCPCS: 36415; 80053; 81001; 84153; 84403; 84443

== ENCOUNTER 2025-06-07 14:43 | Outpatient (REF) | payer MEDICAID, OTHER, SELFPAY ==
--- OUTSIDE RECORDS SUMMARY | 2025-06-07 14:30 | XMS_ITS | Encounter Summary ---
Author Organization [employer] Address [address] [place] [address] [place] [address] Care Team Providers Care Jewelry Maker Name Role Phone Tucker Astorga MD Primary Care Provider [phone]- [phone] Reason for Referral * Neurology (Routine) - Authorized Specialty Diagnoses / Procedures Referred By Geovanny hayes Referred To Contact Diagnoses Paresthesia Procedures Nerve conduction test Tucker Astorga MD [address] [place] [address] Phone: tel: fax: [address] [address] Phone: tel: fax: Referral ID Status Reason Start Date Expiration Date V isits Requested Visits Authorized [id number] Authorized 06/07/2025 06/07/2026 1 1 * Consultation (Routine) - Authorized Specialty Diagnoses / Procedures Referred By Geovanny hayes Referred To Contact Gastroenterology Diagnoses Encounter for screening colonoscopy Tucker Astorga MD [address] [place] [address] Phone: tel: fax: Charli Zarate MD [address] [place] [address] Phone: tel: fax: Referral ID Status Reason Start Date Expiration Date Visits Requested Visits Authorized [id number] Authorized Specialty Services Required 5 06/07/2026 1 1 Reason for Visit * Reason Comments Follow-up Encounter Details Date Type Department Care Team ([facility] Contact Info) Description 06/07/2025 2:30 PM EST Office Visit [facility] MED & PEDS [address] [place] [address] Tucker Astorga MD [address] [place] [address] Elevated blood pressure reading (Primary Dx); Other hemorrhoids; Premature ejaculation; Encounter for screening colonoscopy; Paresthesia; Hemorrhoids, unspecified hemorrhoid type Social History Tobacco [...] is your housing situation today? I have kaushikadrian lobato 11/17/[address] you [...] Sign Reading Time Taken Comments Blood Pressure 133/75 06/07/2025 2:24 PM EST Pulse 64 06/07/2025 2:24 PM EST Temperature 36.8 C (98.2 F) 06/07/2025 2:24 PM EST Respiratory Rate 20 06/07/2025 2:24 PM EST Oxygen Saturation 97% 06/07/2025 2:24 PM EST Inhaled Oxygen Concentration - - Weight 88 kg (194 lb) 06/07/2025 2:24 PM EST Height 165.1 cm (5' 5 ) 06/07/2025 2:24 PM EST Body Mass Index 32.28 06/07/2025 2:24 PM EST documented in this encounter Progress Notes * Tucker Astorga MD - 06/07/2025 2:30 PM EST SUBJECTIVE Peter White is a 55 y.o. male who presents for Follow-up. HPI Peter White, 55-year-old male - Stopped taking prescribed fluoxetine for premature ejaculation due to lack of time and infrequentsexual activity - Reports tingling and funny sensation in both hands for 1.5 to 2 months, more pronounced in one hand, described as similar to sensation after elbow injury - Sensation previously occurred during sleep, now present at other times - No difficulty achieving erection, but unable to last during infrequent sexual activity - Used hemorrhoid cream in the past Problem List[1] Allergies[2] Medications Ordered Prior to Encounter[3] Review of Systems Constitutional: Negative for activity change, appetite change, chills and diaphoresis. HENT: Negative for dental problem, drooling and ear discharge. Eyes: Negative for pain and itching. Respiratory: Negative for cough, choking and chest tightness. Cardiovascular: Negative for palpitations and leg swelling. Gastrointestinal: Negative for abdominal pain, anal bleeding and blood in stool. Endocrine: Negative for cold intolerance and heat intolerance. Genitourinary: Negative for flank pain, frequency and genital sores. Musculoskeletal: Negative for back pain. Neurological: Negative for light-headedness, numbness and headaches. Psychiatric/Behavioral: Negative for agitation, confusion and decreased concentration. OBJECTIVE Vitals: 06/07/25 1424 BP: 133/75 BP Location: Left arm Patient Position: Sitting BP Cuff Size: Adult Pulse: 64 Resp: 20 Temp: 98.2 ??F (36.8 ??C) TempSrc: Oral SpO2: 97% Weight: 194 lb (88 kg) Height: 5' 5 (1.651 m) Physical Exam Constitutional: General: He is not in acute distress. Appearance: Normal appearance. He is not ill-appearing, toxic-appearing or diaphoretic. Cardiovascular: Rate and Rhythm: Normal rate. Pulmonary: Effort: Pulmonary effort is normal. Musculoskeletal: General: Normal range of motion. Right wrist: No tenderness or snuff box tenderness. Normal range of motion. Left wrist: No snuff box tenderness or crepitus. Normal range of motion. Right hand: No tenderness. Normal range of motion. Left hand: No tenderness. Normal range of motion. Comments: Tinel neg Skin: General: Skin is warm. Neurological: General: No focal deficit present. Mental Status: He is alert. Psychiatric: Mood and Affect: Mood normal. Assessment/Plan Assessment/Plan Diagnoses and all orders for this visit: Elevated blood pressure reading Other hemorrhoids Premature ejaculation - Lidocaine HCl 1 % gel; To use daily as needed. Encounter for screening colonoscopy - Referral to Gastroenterology; Future Paresthesia - TSH W/Reflex to FT4; Future - Basic Metabolic Panel; Future - Magnesium; Future - Vitamin B12/Folate, Serum Panel; Future - Nerve conduction test; Future Hemorrhoids, unspecified hemorrhoid type - hydrocortisone (Anusol-HC) 2.5 % rectal cream; Insert into the rectum 2 times daily. Other hemorrhoids: - Prescribed lidocaine gel for hemorrhoid relief. Premature ejaculation: - Recommended continuous use of fluoxetine for management. Suggested use of lidocaine to decrease sensation and potentially prolong duration. Encounter for screening colonoscopy: - Ordered screening colonoscopy. Paresthesia: - Paresthesia likely due to median nerve compression. - Ordered tests including vitamin D level, TSH, electrolytes, and nerve conduction study. Recommended wearing a wrist brace at night to alleviate symptoms. Follow-up scheduled in one month to review test results. This note was drafted using [employer] (AI) technology. The patient/patient's guardian has been informed and has consented to the use of this technology: Yes [1] Patient Active Problem List Diagnosis Tongue [...] needed each day (Allergies). 30 tablet 2 FLUoxetine (PROzac) 20 MG capsule Take 1 capsule (20 mg) by mouth Once per day. 20 capsule 3 fluticasone (Flonase) 50 MCG/ACT nasal spray Administer 1-2 sprays into each nostril Once per day. Shake gently. Before first use, prime pump. After use, clean tip and replace cap. 16 g 11 meloxicam (Mobic) 15 MG tablet Take 1 tablet (15 mg) by mouth Once per day. 30 tablet 11 psyllium (Metamucil) 0.36 g capsule Take 6 capsules (2.16 g) by mouth Once per day. 180 capsule 11 tadalafil (Cialis) 2.5 MG tablet Take 1 tablet (2.5 mg) by mouth Once per day. 30 tablet 2 [DISCONTINUED] hydrocortisone (Anusol-HC) 2.5 % rectal cream Insert into the rectum 2 times daily. 28 g 1 No current facility-administered medications on file prior to visit. documented in this encounter Miscellaneous Notes * Addendum Note - Tucker Astorga MD - 06/07/2025 2:30 PM ESTAddended by: TUCKER ASTORGA on: 06/07/2025 04:31 PM Modules accepted: Orders documented in this encounter Plan of Treatment Upcoming Encounters Date Type Department Care Team (Late st Contact Info) Description 09/12/2025 9:00 AM EDT Office Visit [facility] OPTOMETRY [address] [place] [address] GerardAddis rosario, OD [address] [place], [place] [phone] Scheduled Orders Name Type Priority Associated Diagnoses Orde r Schedule Nerve conduction test Neurology Routine Paresthesia Expected: 06/07/2025 (Approximate), Expires: 06/07/2026 Scheduled Referrals Name Type Priority Associated Diagnoses Order Schedule Referral to Gastroenterology Outpatient Referral Routine Encounter for screening colonoscopy Expected: 06/07/2025 (Approximate), Expires: 06/07/2026 documented as of this encounter Procedures Procedure Name Priority Date/Time Associated Diagnosis Comments VITAMIN B12/FOLATE, SERUM PANEL Routine 06/07/2025 2:45 PM EST Paresthesia TSH W/REFLEX TO FT4 Routine 06/07/2025 2 :45 PM EST Paresthesia MAGNESIUM Routine 06/07/2025 2:45 PM EST Paresthesia BASIC METABOLIC PANEL Routine 06/07/2025 2:45 PM EST Paresthesia documented in this encounter Results * Vitamin B12/Folate, Serum Panel (06/07/2025 2:45 PM EST) Vitamin B12 297 200 - 900 pg/mL [facility] Comment:NORMAL 200-900 PG/ML INDETERMINATE 160-199 PG/ML DEFICIENT < 160 PG/ML Folate 6.3 > or = 4.0 ng/mL [facility] Comment:Reference Values:> o r = 4.0 ng/mL< 4.0 ng/mL suggests folate deficiency Methotrexate, aminopterin and folinic acid(leucovorin) are chemotherapeutic agents whose molecularstructures are similar to folate; therefore, the Architectfolate assay cannot be used for patients using these drugs. Blood Venous blood specimen / Unknown 06/07/2025 2:45 PM EST 06/07/2025 5:47 PM EST Tucker Astorga MD LAB BLOOD ORDERABLES Final Result Performing Organization Address [facility] Co de Phone Number [facility] [address] [place] [phone] * Magnesium (06/07/2025 2:45 PM EST) Pathologist [facility] Magnesium 2.3 1.6 - 2.6 mg/dL [facility] Blood Venous blood specimen / Unknown 06/07/2025 2:45 PM EST 06/07/2025 5:47 PM EST Tucker Astorga MD LAB BLOOD ORDERABLES Final Result Performing Organization Address [facility] Phone Number [facility] [address] [place] [phone] * (ABNORMAL) Basic Metabolic Panel (06/07/2025 2:45 PM EST) Sodium 140 135 - 145 mmol/L [facility] Potassium 3.8 3.3 - 5.1 mmol/L [facility] Chloride 105 96 - 108 mmol/L [facility] Carbon Dioxide 26 22 - 29 mmol/L [facility] Anion Gap 13 12 - 20 [facility] Urea Nitrogen (BUN) 23(H) 9 - 16 mg/dL [facility] Creatinine, Serum 1.21 0.5 - 1.4 mg/dL [facility] Estimated Glomerular Filt Rate >60 [facility] Comment:Chronic Kidney Disea se: Estimated GFR < 60 mL/min/1.50e1Erynwy Kidney Disease: Estimated GFR < 15 mL/min/1.73m2 Glucose 85 60 - 115 mg/dL [facility] Calcium 8.9 8.4 - 10.2 mg/dL [facility] Blood Venous blood specimen / Unknown 06/07/2025 2:45 PM EST 06/07/2025 5:47 PM EST Tucker Astorga MD LAB BLOOD ORDERABLES Final Result Performing Organization Address [facility] Co de Phone Number [facility] [address] [place] [phone] * (ABNORMAL) TSH W/Reflex to FT4 (06/07/2025 2:45 PM EST) TSH reflex Free T4 0.19(L) 0.32 - 4.0 uIU/mL [facility] Blood Venous blood specimen / Unknown 06/07/2025 2:45 PM EST 06/07/2025 5:47 PM EST Tucker Astorga MD LAB BLOOD ORDERABLES Final Result Performing Organization Address [facility] de Phone Number [facility] [address] [place] [phone] documented in this encounter Visit Diagnoses Diagnosis Elevated blood pressure reading- Primary Elevated blood pressure reading without diagnosis of hypertension Hemorrhoids, unspecified hemorrhoid type Premature ejaculation Encounter for screening colonoscopy Paresthesia Disturbance of skin sensation documented in this encounter Additional Health Concerns Assessment Noted Time PHQ-9 Depression Total Score: 1 02/28/20 25 9:35 AM EDT documented as of this encounter Care Teams Jewelry Maker Relationship Specialty Start Date End Date Tucker Astorga MD [address] [place] [address] PCP - General Internal Medicine 01/27/21 documented as of this encounter
[2025-06-07 18:27] LABS: Anion Gap 13 (12-20); Blood Urea Nitrogen 23 mg/dL (9-16); Calcium 8.9 mg/dL (8.4-10.2); Carbon Dioxide 26 mmol/L (22-29); Chloride 105 mmol/L (96-108); Estimated Glomerular Filt Rate > 60; Magnesium 2.3 mg/dL (1.6-2.6); Potassium 3.8 mmol/L (3.3-5.1); Sodium 140 mmol/L (135-145)
[2025-06-07 18:49] LABS: Folate 6.3 ng/mL (> or = 4.0); Vitamin B12 297 pg/mL (200-900)
--- OUTSIDE RECORDS SUMMARY | 2025-06-07 18:51 | XMS_ITS | Clinical Summary ---
Author Organization [facility] Address [address] [place] [address] Care Team Providers Care Art Director Name Role Phone WaqashollisLambert sorensen Primary Care Provider Allergies No known active allergies Medications PARoxetine (PAXIL) 10 mg tablet Take 10 mg by mouth once a day. 04/17/2021 Active Active Problems No known active problems Family History Medical History Relation Name Comments [...] Health Maintenance Due Date Last Done Comments Cologmatty 1969 Colon Cancer Screening 1969 Colonoscopy 1969 FOBT / Fit Test 1969 HIV Screening 1969 Sigmoidoscopy 1969 Hepatitis B Vaccines (1 of 3 - 19+ 3-dose series) 1988 DTaP,Tdap,and Td Vaccines (1 - Tdap) 1991 Pneumococcal Vaccine: 50+ Ye ars (1 of 1 - PCV) 2019 Zoster Vaccines (1 of 2) 2019 Alcohol/Substance Use Screening 06/21/2024 Influenza Vaccine (#1) 2025 04/17/2021 COVID-19 Vaccine (3 - 2024- season) 2025, 10/15/2020 Insurance [facility] HSNO/FREE CARE Care Teams Art Director Relationship Specialty Start Date End Date Lambert Astorga [address] [place] [address] PCP - General Internal Medicine 04/30/21
--- OUTSIDE RECORDS SUMMARY | 2025-06-07 18:51 | XMS_ITS | Encounter Summary ---
Author Organization [employer] Address [address] [place] [address] Care Team Providers Care Quality Control Engineer Name Role Phone Lambert Astorga MD Primary Care Provider +1- [phone] Reason for Visit * Reason Onset Date Comments triage 11/10/2022 Encounter Details Date Type Department Care Team ([facility] st Contact Info) Description 11/10/2022 Telephone [facility] MEDICINE [address] [place] [address] Lambert Astorga MD [address] [place], [place] [phone] triage Social History Tobacco Use Types Packs/Day [...] Apt with Dr. Downing 330pm 11/10 @ [facility] . Pt agrees to this apt. [...] Description 09/12/2025 9:00 AM EDT Office Visit [facility] OPTOMETRY [address] [place] [address] Addis Gee, OD [address] [facility] [place] [address] documented as of this encounter Visit Diagnoses Not on filedocumented in this encounter Care Teams Quality Control Engineer Relationship Specialty Start Date End Date Lambert Astorga MD [address] [place] [address] PCP - General Internal Medicine 01/27/21 documented as of this encounter
--- OUTSIDE RECORDS SUMMARY | 2025-06-07 18:51 | XMS_ITS | Encounter Summary ---
Author Organization [employer] Address 75 [facility] 7 [place] [address] Care Team Providers Care Educational Therapist Name Role Phone Lambert Astorga MD Primary Care Provider +1- [phone] Encounter Details Date Type Department Care Team ([facility] Contact Info) Description 11/28/2024 Orders Only [facility] MED & PEDS [address] [place] [address] Lambert Astorga MD [address] [place] [address] Low TSH level (Primary Dx); Dyslipidemia Social [...] as of this encounter Plan of Treatment Upcoming Encounters Date Type Department Care Team (Late st Contact Info) Description 09/12/2025 9:00 AM EDT Office Visit [facility] OPTOMETRY [address] [place] [address] Gerard, Addis, OD [address] [place] [address] Scheduled Orders Name Type Priority Associated Diagnoses Orde r Schedule TSH W/Reflex to FT4 Lab Routine Low TSH level Expected: 11/28/2024 (Approximate), Expires: 11/28/2025 Lipid Panel, Standard Lab Routine Dyslipidemia Expected: 11/28/2024 (Approximate), Expires: 11/28/2025 documented as of this encounter Visit Diagnoses Diagnosis Low TSH level- Primary Dyslipidemia Other and unspecified hyperlipidemia documented in this encounter Care Teams Educational Therapist Relationship Specialty Start Date End Date Lambert Astorga MD [address] [place] [address] PCP - General Internal Medicine 01/27/21 documented as of this encounter
--- OUTSIDE RECORDS SUMMARY | 2025-06-07 18:52 | XMS_ITS | Encounter Summary ---
Author Organization [employer] Address 75 [facility] 7 [place] [address] Care Team Providers Care Boat Crew Deck Hand Name Role Phone Lambert Astorga MD Primary Care Provider +1- [phone] Encounter Details Date Type Department Care Team (Late Contact Info) Description 06/30/[address] [facility] CHC MED & PEDS [address] [place] [address] Lambert Astorga MD [address] [place] [address] Chronic pain of both knees (Primary Dx) [...] Encounters Date Type Department Care Team (Late Contact Info) Description 09/12/2025 9:00 AM EDT Office [address] [facility] OPTOMETRY [address] [place] [address] Addis Gee, OD [address] [place], [place] [phone] documented as of this encounter Visit Diagnoses Diagnosis Chronic pain of both knees- Primary documented in this encounter Care Teams Boat Crew Deck Hand Relationship Specialty Start Date End Date Lambert Astorga MD [address] [place] [address] PCP - General Internal Medicine 01/27/21 documented as of this encounter
--- OUTSIDE RECORDS SUMMARY | 2025-06-07 18:52 | XMS_ITS | Encounter Summary ---
Author Organization [employer] Address [address] [place] [address] [place] [address] Care Team Providers Care Bender Machine Name Role Phone Lambert Astorga MD Primary Care Provider [phone]- [phone] Reason for Referral * Consultation (Routine) - Closed Specialty Diagnoses / Procedures Referred By Conthyacinth hayes Referred To Contact Gastroenterology Diagnoses Encounter for screening colonoscopy Lambert Astorga MD [address] [place] [address] Phone: tel: fax: Charli Zarate MD [address] [place] [phone] Phone: tel: fax: Referral ID Status Reason Start Date Expiration Date V isits Requested Visits Authorized [id number] Closed Specialty Services Required 12/31/2023 12/30/2024 1 1 Encounter Details Date Type Department Care Team (Late st Contact Info) Description 12/31/2023 Orders Only [facility] MED & PEDS [address] [place], [place] [phone] Lambert Astorga MD [address] [place], [place] [phone] Encounter for screening colonoscopy (Primary Dx) Social [...] [facility] OPT[facility]RY [address] [place] [address] Gerard, Addis, OD [address] [place] [address] Scheduled Referrals Name Type Priority Associated Diagnoses [...] (Free Thyroxine) 1.23 0.71 - 1.85 ng/dL [facility] 11/27/2024 9:40 AM EDT 11/27/2024 2:11 PM EDT Lambert Astorga MD LAB BLOOD ORDERABLES Final Result [facility] [address] [place] [phone] documented in this encounter Visit Diagnoses Diagnosis Encounter for screening colonoscopy- Primary documented in this encounter Care Teams Bender Machine Relationship Specialty Start Date End Date Lambert Astorga MD [address] [place] [phone] PCP - General Internal Medicine 01/27/21 documented as of this encounter
--- OUTSIDE RECORDS SUMMARY | 2025-06-07 18:52 | XMS_ITS | Encounter Summary ---
Author Organization [employer] Address [address] [facility] [address] [place] [address] Care Team Providers Care Adult Caregiver Name Role Phone Lambert Astorga MD Primary Care Provider +1 [phone] Encounter Details Date Type Department Care Team (Latest Contact Info) Description 06/07/2025 Travel Social History Tobacco Use Types Packs/Day [...] your housing situation today? I have kaushik cheryle 11/17/[address] you li [...] Description 09/12/2025 9:00 AM EDT Office Visit [facility] OPTOMETRY [address] [place] [address] Gerard, Addis, OD [address] [place] [address] documented as of this encounter Visit Diagnoses Not on filedocumented in this encounter Additional Health Concerns Assessment Noted Time PHQ-9 Depression Total Score: 1 02/28/20 25 9:35 AM EDT documented as of this encounter Care Teams Adult Caregiver Relationship Specialty Start Date End Date Lambert Astorga MD [address] [place] [address] PCP - General Internal Medicine 01/27/21 documented as of this encounter
--- OUTSIDE RECORDS SUMMARY | 2025-06-07 18:52 | XMS_ITS | Encounter Summary ---
Author Organization [employer] Address 75 [facility] 7 [place] [address] Care Team Providers Care Cone Marker Name Role Phone Lambert Astorga MD Primary Care Provider +1- [phone] Reason for Visit * Reason Comments Med Refill Encounter Details Date Type Department Care Team ([facility] st Contact Info) Description 11/27/2024 Refill [facility] MED & PEDS [address] [place] [address] Lambert Astorga MD [address] [place] [address] Hemorrhoids, unspecified hemorrhoid type Social History Tobacco [...] Description 09/12/2025 9:00 AM EDT Office Visit [facility] OPTOMETRY [address] [place] [address] Gerard, Addis, OD [address] [place] [address] documented as of this encounter Visit Diagnoses Diagnosis Hemorrhoids, unspecified hemorrhoid type documented in this encounter Care Teams Cone Marker Relationship Specialty Start Date End Date Lambert Astorga MD [address] [place] [address] PCP - General Internal Medicine 01/27/21 documented as of this encounter
--- OUTSIDE RECORDS SUMMARY | 2025-06-07 18:52 | XMS_ITS | Clinical Summary ---
Author Organization [employer] Address [address] [facility] [address] [place] [address] Care Team Providers Care Curing Oven Tender Name Role Phone Lambert Astorga MD Primary Care Provider Allergies No known active allergies Medications Blood [...] 30 tablet 11 11/28/19 25 026 Active FLUoxetine (PROzac) 20 MG capsuleIndicat ions:Premature ejaculation Take 1 capsule (20 mg) by mouth Once per day. 20 capsule 3 02/28/20 25 026 Active tadalafil (Cialis) 2.5 MG tabletIndicati ons:Other male erectile dysfunction Take 1 tablet (2.5 mg) by mouth Once per day. 30 tablet 2 02/28/20 25 Active hydrocortisone (Anusol-HC) 2.5 % rectal creamIndicatio ns:Hemorrhoids , unspecified hemorrhoid type Insert into the rectum 2 times daily. 28 g 1 5 3:00 PM EST 06/07/20 25 Active lidocaine 2 % gelIndications :Premature ejaculation Insert into the urethra if needed for mild pain. To use on the glans penis prior to sexual encounter once a week 20 mL 06/07/20 25 Active hydrocortisone (Anusol-HC) 2.5 % rectal creamIndicatio ns:Hemorrhoids , unspecified hemorrhoid type Insert into the rectum 2 times daily. 28 g 1 11/28/19 25 025 Discontinued(Re order (will not trigger notification to Pharmacy)) Lidocaine HCl 1 % gelIndications :Premature ejaculation To use daily as needed. 226 g 06/07/20 25 025 Discontinued(Th erapy completed) Active Problems Problem Noted Date Diagnosed Date [...] Encounters Date Type Department Care Team Description 06/07/2025 2:30 PM EST Office Visit [facility] [address] [place] [address] Lambert Astorga MD Elevated blood pressure reading (Primary Dx); Other hemorrhoids; Premature ejaculation; Encounter for screening colonoscopy; Paresthesia; Hemorrhoids, unspecified hemorrhoid type 06/07/2025 Travel 05/07/2025 Travel from Last 3 Months Immunizations Immunization Administration [...] Mass Index 32.28 06/07/2025 2:24 PM EST Plan of Treatment Upcoming Encounters Date Type Department Care Team (Late st Contact Info) Description 09/12/2025 9:00 AM EDT Office Visit [facility] [address] [place], [place] [id number] Gerard, Addis, OD [address] [place] [address] Health Maintenance Due Date Last Done Comments [...] 10/02/2024, 08/11/2022 Dental X-Ray: Full Mouth 08/12/2025 023, 05/08/2022 Dental X-Ray: Bitewings 10/03/2025 10/03/19 25, 08/11/2022 SDOH Screening 11/17/2025 11/17/2024 Alcohol/Substance Use Screening 02/27/2026 02/27/2025 Depression Screening 02/27/2026 02/27/2025, 02/27/2025 Disability Screening 02/27/2026 02/27/2025 Tobacco Screening 06/07/2026 06/07/2025 Lipid Panel 11/27/2029 11/27/2024, 02/12/2021 RSV Patients [...] PANEL Routine 06/07/2025 2:45 PM EST Paresthesia MAGNESIUM Routine 06/07/2025 2:45 PM EST Paresthesia BASIC METABOLIC PANEL Routine 06/07/2025 2:45 PM EST Paresthesia TSH W/REFLEX TO FT4 Routine 06/07/2025 2 :45 PM EST Paresthesia LIPID PANEL, STANDARD Routine 11/27/2024 9:40 AM EDT Elevated blood pressure reading BITEWINGS - 4 RADIOGRAPHIC IMAGES Routine 10/02/2024 9:00 AM EDT PERIODIC ORAL EVALUATION - ESTABLISHED PATIENT Routine 10/02/2024 9:00 AM EDT INTRAORAL - COMPLETE SERIES OF RADIOGRAPHIC IMAGES Routine 08/11/2022 3:00 PM EST from Last 3 Months or Most Recently Relevant to Health Maintenance Results * Vitamin B12/Folate, Serum Panel (06/07/2025 2:45 PM EST) Vitamin B12 297 200 - 900 pg/mL [facility] Comment:NORMAL 200-900 PG/ML INDETERMINATE 160-199 PG/ML DEFICIENT < 160 PG/ML Folate 6.3 > or = 4.0 ng/mL [facility] Comment:Reference Values:> o r = 4.0 ng/mL< 4.0 ng/mL suggests folate deficiency Methotrexate, aminopterin and folinic acid(leucovorin) are chemotherapeutic agents whose molecularstructures are similar to folate; therefore, the Architectfolate assay cannot be used for patients using these drugs. Blood Venous blood specimen / Unknown 06/07/2025 2:45 PM EST 06/07/2025 5:47 PM EST us Lambert Astorga MD LAB BLOOD ORDERABLES Final Result [facility] [address] [place] [phone] * (ABNORMAL) TSH W/Reflex to FT4 (06/07/2025 2:45 PM EST) [facility] TSH reflex Free T4 0.19(L) 0.32 - 4.0 uIU/mL [facility] Blood Venous blood specimen / Unknown 06/07/2025 2:45 PM EST 06/07/2025 5:47 PM EST us Lambert Astorga MD LAB BLOOD ORDERABLES Final Result Performing Organization Address [facility] Co de Phone Number [facility] [address] [place] [phone] * Magnesium (06/07/2025 2:45 PM EST) [facility] Magnesium 2.3 1.6 - 2.6 mg/dL [facility] Blood Venous blood specimen / Unknown 06/07/2025 2:45 PM EST 06/07/2025 5:47 PM EST us Lambert Astorga MD LAB BLOOD ORDERABLES Final Result Performing Organization Address [facility] de Phone Number [facility] [address] [place] [phone] * (ABNORMAL) Basic Metabolic Panel (06/07/2025 2:45 PM EST) [facility] Sodium 140 135 - 145 mmol/L [facility] Potassium 3.8 3.3 - 5.1 mmol/L [facility] Chloride 105 96 - 108 mmol/L [facility] Carbon Dioxide 26 22 - 29 mmol/L [facility] Anion Gap 13 12 - 20 [facility] Urea Nitrogen (BUN) 23(H) 9 - 16 mg/dL [facility] Creatinine, Serum 1.21 0.5 - 1.4 mg/dL [facility] Estimated Glomerular Filt Rate >60 [facility] Comment:Chronic Kidney Disea se: Estimated GFR < 60 mL/min/[id number] Kidney Disease: Estimated GFR < 15 mL/min/1.73m2 Glucose 85 60 - 115 mg/dL [facility] Calcium 8.9 8.4 - 10.2 mg/dL [facility] Blood Venous blood specimen / Unknown 06/07/2025 2:45 PM EST 06/07/2025 5:47 PM EST us Lambert Astorga MD LAB BLOOD ORDERABLES Final Result [facility] [address] [place] [phone] * (ABNORMAL) Lipid Panel, Standard (11/27/2024 9:40 AM EDT) Triglycerides 127 <150 mg/dL [facility] Comment:Desirable Triglyceri de: less than 150 mg/dLBorderline High Triglyceride 150-199 mg/dLHigh Triglyceride: 200-499 mg/dLVery High Triglyceride: greater than or equal to 5OO mg/dL Cholesterol 219(H) <200 mg/dL [facility] Comment:Desirable Cholestero l: less than 200 mg/dLBorderline High Cholesterol: 200-239 mg/dLHigh Cholesterol: greater than 239 mg/dL LDL Cholesterol Calculated 156(H) <100 mg/dL [facility] Comment:Desirable LDL: less than 100 mg/dLNear Optimal/Above Optimal LDL: 110- 129 mg/dLBorderline High LDL: 130-159 mg/dLHigh LDL: 160-189 mg/dLVery High LDL: greater than or equal to 190 mg/dL HDL Cholesterol 38(L) >40 mg/dL [facility] Comment:Desirable HDL: great er than 40 mg/dL Note: This HDL assay may give artificially low results in patients with liver disease. Blood Venous blood specimen / Unknown 11/27/2024 9:40 AM EDT 11/27/2024 2:11 PM EDT us Lambert Astorga MD LAB BLOOD ORDERABLES Final Result Performing Organization Address City/State/[facility] Co de Phone Number [facility] [address] [place] [phone] from Last 3 Months or Most Recently Relevant to Health Maintenance Insurance [facility] [place] [id number] [place] AD[place] Care Teams Curing Oven Tender Relationship Specialty Start Date End Date Lambert Astorga MD [address] [place] [phone] PCP - General Internal Medicine 01/27/21
--- OUTSIDE RECORDS SUMMARY | 2025-06-07 18:52 | XMS_ITS | Encounter Summary ---
Author Organization [employer] Address [address] [facility] [address] [place] [address] Care Team Providers Care Paper Winder Name Role Phone Lambert Astorga MD Primary Care Provider [phone] Reason for Visit * Reason Onset Date Comments Nurse Triage 10/26/2023 Encounter Details Date Type Department Care Team (Late st Contact Info) Description 10/26/2023 Telephone [facility] [address] [place] [address] Lambert Astorga MD [address] [place], [place] [phone] Nurse Triage Social History Tobacco Use Types [...] Description 09/12/2025 9:00 AM EDT Office Visit [facility] [address] [place] [address] Addis Gee, OD [address] [place] [address] documented as of this encounter Visit Diagnoses Not on filedocumented in this encounter Care Teams Paper Winder Relationship Specialty Start Date End Date Lambert Astorga MD [address] [place] [phone] PCP - General Internal Medicine 01/27/21 documented as of this encounter
[2025-06-07 19:28] LABS: Free T4 (Free Thyroxine) 1.25 ng/dL (0.71-1.85)
== END 2025-06-07 14:44 | disposition home or self-care (01) ==
LOC: HO.CHCLDS 14:43
PROVIDERS: Visit Provider Internal Medicine
DX: R20.2 Paresthesia of skin (principal)
CPT/HCPCS: 36415; 80048; 82607; 82746; 83735; 84439; 84443